=== PATIENT | female | born 1950 | race American Indian/Alaskan Native ===

== ENCOUNTER 2016-12-10 10:12 | Day surgery (SDC) | payer MEDICARE, OTHER ==
[~2016-12-10 10:12] MED LIST: NACL 0.9% 1000 ML 1,000 ML IV SCH
[2016-12-10] MEDS ORDERED: DIPRIVAN 10 MG/ML IV ONE ×2 (10:31)
--- NOTE | 2016-12-10 10:54 | Anesthesia Consultation ---
Anesthesia Consult and Med Hx Date of service: 12/10/16 - Airway Anesthetic Teeth Evaluation: Good ROM Head & Neck: Adequate Mental/Hyoid Distance: Adequate Mallampati Class: Class III Intubation Access Assessment: Possibly Difficult - Pre-Operative Health Status ASA Pre-Surgery Classification: ASA3 Proposed Anesthetic Plan: MAC - Pulmonary Hx Smoking: No Hx Sleep Apnea: Yes (was using a cpap but the tubing wore out) - Cardiovascular System Hx Hypertension: Yes - Central Nervous System Hx Back Pain: Yes () Hx Psychiatric Problems: No - Endocrine Hx Non-Insulin Dependent Diabetes: Yes - Other Systems Hx Alcohol Use: No Hx Substance Use: No Hx Cancer: No Hx Obesity: Yes (BMI 38.0)
--- NOTE | 2016-12-10 10:54 | Anesthesia Day of Surgery ---
Anesthesia Day of Surgery - Day of Surgery Patient Examined: Yes Patient H&P Reviewed: Yes Patient is NPO: Yes
--- NOTE | 2016-12-10 10:57 | Short Stay Summary ---
Short Stay Documentation Date of service: 12/10/16 Narrative H&P: 66 year old presents for colonoscopy for evaluation of hematochezia. - History Principal diagnosis: hematochezia H&P: obtained from office - Allergies and Medications Current Medications: Allergies aspirin Adverse Reaction (Verified 12/10/16 10:35) Nausea Home Medications Medication Instructions Recorded Confirmed Last Taken Type Lisinopril/Hydrochlorothiazide 1 tab PO QDAY 12/07/16 12/10/16 12/09/16 History [Zestoretic 20-12.5 mg] 10/12.5MG Active Medications Sodium Chloride (Nacl 0.9% 1000 Ml) 1,000 mls @ 50 mls/hr IV DIRECT FRANCISCA - Physical exam General appearance: no acute distress HEENT: PERRLA, EOMI Lungs: Clear to auscultation Heart: Regular rate, Normal S1, Normal S2 - Hospital course Hospital course: Uneventful colonoscopy. - Disposition Condition at discharge: Good Disposition: DISCHARGED TO HOME OR SELFCARE - Discharge Diagnoses (1) Colon polyp Status: Acute Comment: transverse colon (2) Diverticulosis of colon Status: Acute Qualifiers: Diverticulosis bleeding: D (3) Internal hemorrhoids Status: Acute (4) External hemorrhoids Status: Acute (5) Hematochezia Status: Acute Comment: likely hemorrhoidal Short Stay Discharge Plan Activity: other (no driving today) Diet: other (may resume previous) Additional Instructions: Patient to call for path results in 10 days. Follow up with: YOLA ROBB MD [Primary Care Provider] - 7 Days
[2016-12-10] MEDS ORDERED: XYLOCAINE MPF 2% ONE (11:01)
--- NOTE | 2016-12-10 11:39 | Operative Report ---
Operative Report Operative Report: Date of procedure: 12/10/2016 Preprocedure diagnosis: Hematochezia Post procedure diagnosis: Polyp, diverticulosis, hemorrhoids Procedure name(s): Colonoscopy with snare polypectomy Surgeon: Thiago Pate MD Anesthesia: Monitored anesthesia care EBL: Less than 1 mL Procedure: The indications, techniques, potential complications and alternatives , had been discussed in full detail prior to the date of the exam, and once again on the day of the exam. Questions were encouraged and answered, and consent was thereby obtained. The patient was placed in the left lateral decubitus position, and was medicated by anesthesia services. See the anesthesia records for details. The anal sphincter was digitally dilated. Moderate external hemorrhoids were noted. The tip of a [employer] video colonoscope was inserted through the anal sphincter and into the rectal vault. It was then advanced proximally under continuous visualization of the lumen to the cecum without difficulty. The prep was good and landmarks were easily identified. No pathology was seen in the cecum. The appendiceal orifice and ileocecal valve appeared normal. From the cecum, the instrument was slowly withdrawn, with careful circumferential examination of the colonic mucosa, with care taken to interrogate behind folds. Numerous diverticula, small and large, were seen scattered throughout the entire colon. Otherwise, no other pathology was seen in the cecum, ascending colon or hepatic flexure. A 5 mm sessile polyp was excised from mid transverse colon with a cold snare and retrieved. There was no significant bleeding. Except for diverticula, no other pathology was seen in the remainder of the transverse colon, or in the splenic flexure, descending colon, sigmoid colon or the rectum from the forward view. Retroflexion in the rectum revealed moderate internal hemorrhoids with no active bleeding. The instrument was fully withdrawn. The procedure was very well tolerated. Postprocedure she was monitored in the recovery area of the GI lab to ensure stability prior to her release. See the GI Lab outpatient record for details regarding instructions to patient, medications and plans for follow-up. Final diagnosis: 1. Sessile polyp, 5 mm, mid transverse colon 2. Haines diverticulosis 3. Internal and external hemorrhoids, likely source of bleeding Colon screening information: This was not a screening colonoscopy, however for documentation purposes the previous colonoscopy was approximately 20 years ago, and the next colonoscopy will depend upon histology of the excised polyp. Thiago Pate M.D. Dictated 12/10/2016 at 11:35 AM
[2016-12-10 11:59] VITALS: BP 156/76
--- NOTE | 2016-12-10 14:14 | Post Anesthesia Evaluation ---
- Post Anesthesia Evaluation Patient Participated: No (pt resting comfortable) Airway Patent: Yes Stable Respiratory Function: Yes Nausea/Vomiting: No Temp > 96.8F: Yes Pain Manageable: Yes Adequeate Hydration: Yes Anesthesia Complications: No Block Receding Appropriately: Not Applicable Patient on Ventilator: No
== END 2016-12-10 10:13 | disposition home or self-care (01) ==
LOC: GIO 10:12
PROVIDERS: ATTEND Internal Medicine Gastroenterology
DX: D12.3 Benign neoplasm of transverse colon (principal); K57.30 Diverticulosis of large intestine without perforation or abscess without bleeding; K64.8 Other hemorrhoids; K64.4 Residual hemorrhoidal skin tags; E11.9 Type 2 diabetes mellitus without complications; I10 Essential (primary) hypertension; G47.33 Obstructive sleep apnea (adult) (pediatric); E78.5 Hyperlipidemia, unspecified; F10.21 Alcohol dependence, in remission; E66.9 Obesity, unspecified; Z68.38 Body mass index [BMI] 38.0-38.9, adult; Z79.899 Other long term (current) drug therapy
CPT/HCPCS: 45385; 88305; J2704; J7030